=== PATIENT | male | born 1940 | race American Indian/Alaskan Native ===

== ENCOUNTER 2019-05-13 07:59 | Outpatient (CLI) | payer MEDICARE ==
--- NOTE | 2019-05-13 10:41 | Cat Scan Report ---
CT ABDOMEN AND PELVIS WITHOUT CONTRAST HISTORY: MALIGNANT NEOPLASM OF PROSTATE COMPARISON: None. TECHNIQUE: Axial CT images were obtained through the abdomen and pelvis without IV contrast. Sagittal and coronal reformatted images. All CT scans at this location are performed using CT dose reduction for ALARA by means of automated exposure control. FINDINGS: CT ABDOMEN: Lung Bases: The visualized lung bases are well-aerated. Mild to moderate cardiomegaly. Liver: No significant abnormality. Biliary: 2 calcified gallstones measuring up to 1 cm identified. No biliary dilatation or inflammatio n. Spleen: No significant abnormality. Unenlarged. Pancreas: No significant abnormality. Adrenals: No significant abnormality. Kidneys: Multiple bilateral renal cysts are identified. The largest cyst measures up to [address] and contains subtle rim calcifications. No evidence for renal mass or obstructive uropathy. 2 mm calyceal stone in the mid right kidney is noted. Lymphatics: No lymphadenopathy. Vasculature: Mild distal aortic calcifications. No aneurysm. Bowel/Peritoneum: There are several diverticula scattered throughout the colon. No evidence for focal inflammation, obstruction or obvious mass. No free fluid or free air. Normal appendix. CT PELVIS: : The prostate gland is mildly enlarged measuring 6 cm in diameter and contains scattered calcifica tions. The bladder and distal ureters are unremarkable. Osseous Structures: No suspicious blastic bony lesion is identified. Mild degenerative changes are no cipriano throughout the spine and bilateral hips. Additional Findings: Small right inguinal hernia containing fat IMPRESSION: No evidence for metastatic disease to the abdomen or pelvis. Cardiomegaly. Bilateral renal cysts some of which are slightly complex. No obvious renal mass. Nonobstructing right renal stone. Cholelithiasis. Diverticulosis of the colon. Mildly enlarged prostate gland. Signer Name: Woody Caicedo Jr, MD Signed: 05/13/2019 10:37 AM Workstation Name: [id number]
--- NOTE | 2019-05-13 12:22 | Nuclear Medicine Report ---
NUCLEAR MEDICINE BONE SCAN, WHOLE BODY INDICATION: MALIGNANT NEOPLASM OF PROSTATE. TECHNIQUE: 27.5 mCi of Tc-99m MDP were injected IV. Whole body images were obtained. Spot shots of t he anterior and posterior arms COMPARISON: No relevant prior imaging study available. FINDINGS: Skeletal Structures: Fairly symmetric, likely degenerative uptake is present involving the shoulders , sternoclavicular joints, hips, left knee and left ankle. Photopenic defect in the right knee likely represents knee replacement.. Skeletal Lesions: None. Soft Tissues: Normal. Kidneys: Normal, symmetric activity. Additional Findings: Mild urinary contamination in the perineum is noted.. IMPRESSION: Degenerative changes. No osseous metastases are identified.. Signer Name: Woody Caicedo Jr, MD Signed: 05/13/2019 12:17 PM Workstation Name: [id number]
== END 2019-05-13 08:00 | disposition home or self-care (01) ==
LOC: NM 07:59
PROVIDERS: ATTEND Urology
DX: C61 Malignant neoplasm of prostate (principal); M47.899 Other spondylosis, site unspecified; I51.7 Cardiomegaly; N28.1 Cyst of kidney, acquired; K40.90 Unilateral inguinal hernia, without obstruction or gangrene, not specified as recurrent
CPT/HCPCS: 74176; 78306; A9503